=== PATIENT | female | born 1980 | race Two or more races ===

== ENCOUNTER → 2021-02-20 | Outpatient (CLI) | payer OTHER | END | disposition home or self-care (01) | LOC: PRENATAL 09:00 | PROVIDERS: ATTEND Obstetrics & Gynecology Maternal & Fetal Medicine | DX: Z36.89 Encounter for other specified antenatal screening (principal); O36.80X1 Pregnancy with inconclusive fetal viability, fetus 1; O09.511 Supervision of elderly primigravida, first trimester; Z3A.12 12 weeks gestation of pregnancy ==

== ENCOUNTER 2024-06-16 07:22 | Outpatient (CLI) | payer OTHER | END 2024-06-16 07:33 | disposition home or self-care (01) | LOC: LAB 07:22 | PROVIDERS: ATTEND Obstetrics & Gynecology Maternal & Fetal Medicine | DX: O28.5 Abnormal chromosomal and genetic finding on antenatal screening of mother (principal); O28.3 Abnormal ultrasonic finding on antenatal screening of mother ==

== ENCOUNTER 2024-06-16 09:42 | Outpatient (CLI) | payer OTHER | END 2024-06-16 09:43 | disposition home or self-care (01) | LOC: PRENATAL 09:42 | PROVIDERS: ATTEND Obstetrics & Gynecology Maternal & Fetal Medicine | DX: O26.842 Uterine size-date discrepancy, second trimester (principal); O28.5 Abnormal chromosomal and genetic finding on antenatal screening of mother; O09.522 Supervision of elderly multigravida, second trimester; Z3A.16 16 weeks gestation of pregnancy ==